=== PATIENT | male | born 1985 | race Caucasian/White ===

== ENCOUNTER 2018-04-01 11:30 | Emergency (ER) | payer BC ==
[~2018-04-01 11:30] MED LIST: AMOX-559 PO; ASPI-757 PO; OXYC-865 PO; SULF-198 PO
--- NOTE | 2018-04-01 11:39 | ER Report ---
History and Physical Time Seen By MD: 11:39 HPI/ROS CHIEF COMPLAINT: Cold symptoms HISTORY OF PRESENT ILLNESS: This is a 32-year-old male who presents to the emergency department for cold symptoms. Patient states that over the last 4-5 days he has had sinus pressure, postnasal drip, semi-productive cough, aches and chills. Denies nausea or vomiting. No diarrhea. No chest pain or shortness of breath. No rashes. REVIEW OF SYSTEMS: Respiratory: As above. ENT: As above. Cardiovascular: No chest pain, no palpitations. Gastrointestinal: No vomiting, no abdominal pain. Musculoskeletal: No back pain. Allergies: Coded Allergies: No Known Drug Allergies (Unverified , 04/01/18) Home Meds Active Scripts Amoxicillin/Pot Clav 875-125 Mg Tab (AUGMENTIN 875-125 TABLET) 1 Each Tablet, 1 TAB PO Q12H for 7 Days, #14 TAB 0 Refills Prov:ELIUD SAUNDERS [facility] 04/01/18 Prednisone (PREDNISONE) 20 Mg Tablet, 20 MG PO BID, #10 TAB Prov:ELIUD SAUNDERS [facility] 04/01/18 Albuterol Sulfate 90 Mcg/Act (PROAIR HFA 90 MCG/ACT) 8.5 Gm Hfa.aer.ad, 1-2 PUFF IH 3-4XD, #1 INHALER 0 Refills Prov:ELIDU SAUNDERS [facility] 04/01/18 Reported Medications Bupropion Hcl (BUPROPION XL) 150 Mg Tab.er.24h 04/01/18 Amphet Asp/Amphet/D-Amphet (AMPHETAMINE SALTS 10 MG TAB) 10 Mg Tablet 04/01/18 Aspirin (ASPIRIN) 325 Mg Tablet, 325 MG PO Q4-6H PRN for PAIN, TAB 01/19/16 Discontinued Scripts Oxycodone Hcl/Acetaminophen (PERCOCET 5-325 MG TABLET) 1 Each Tablet, 1 EACH PO Q6H PRN for PAIN, #12 TAB 0 Refills Prov:ODELL STEWART MD 11/03/16 Sulfamethoxazole/Trimet 800-160 Mg Tab (BACTRIM DS TABLET) 1 Each Tablet, 2 TAB PO Q12H, #12 MG 0 Refills TAKE ONE TABLET BY MOUTH EVERY TWELVE HOURS Prov:ODELL STEWART MD 11/03/16 Amoxicillin/Pot Clav 875-125 Mg Tab (AUGMENTIN 875-125 TABLET) 1 Each Tablet, 1 TAB PO Q12H, #20 TAB 0 Refills Prov:DEMIAN PEREZ MD 01/19/16 Past Medical/Surgical History Patient has a history of right and left hand fractures, ADHD. Reviewed Nurses Notes: Yes Hx Substance Use Disorder: No Hx Alcohol Use: Yes Constitutional Vital Sign - Last 24 Hours 04/01/18 04/01/18 04/01/18 04/01/18 11:34 11:35 12:00 12:01 Temp 98.2 Pulse 118 101 Resp 16 B/P (MAP) 139/105 (116) 139/105 117/101 (106) Pulse Ox 99 95 93 O2 Delivery Room Air Room Air 04/01/18 04/01/18 04/01/18 04/01/18 12:01 12:06 12:06 12:30 Pulse 106 123 109 Resp 18 18 B/P (MAP) 140/99 (113) Pulse Ox 96 95 O2 Delivery Room Air 04/01/18 04/01/18 13:00 13:27 Pulse 111 B/P (MAP) 140/123 (129) 131/101 (111) Pulse Ox 93 Physical Exam General Appearance: The patient is alert, has no immediate need for airway protection and no current signs of toxicity. Eyes: Pupils equal and round no injection. ENT: right frontal and maxillary sinus pain with palpation. Respiratory: Chest is non tender, lungs are clear to auscultation. Cardiac: regular rate and rhythm. Gastrointestinal: Abdomen is soft and non tender, no masses, bowel sounds normal. Musculoskeletal: Neck: Neck is supple and non tender. Extremities have full range of motion and are non tender. Skin: No rashes or lesions. DIFFERENTIAL DIAGNOSIS: After history and physical exam differential diagnosis was considered for viral syndrome, influenza, bronchitis, pneumonia and sinusitis. Medical Decision Making Data Points Laboratory Hematology Test 04/01/18 11:56 Influenza Virus Type A (PCR) Negative (NEGATIVE) Influenza Virus Type B (PCR) Negative (NEGATIVE) Chemistry Test 04/01/18 11:56 Influenza Virus Type A (PCR) Negative (NEGATIVE) Influenza Virus Type B (PCR) Negative (NEGATIVE) EKG/Imaging Imaging Location: [facility] [place] Patient: Bishop Mendoza : 1985 Visit/Account:[id number] Date of : 04/01/2018 2 VIEWS CHEST INDICATION: Cough. COMPARISON: None available FINDINGS: Cardiomediastinal silhouette and pulmonary vessels within normal limits. There is no focal infiltrate or lobar consolidation. There is no pneumothorax or pleural effusion. No nodule. Upper abdomen is unremarkable. No acute bony abnormality. IMPRESSION: 1. No acute cardiopulmonary process. Report Dictated By: Francesco Reeder at 04/01/2018 12:30 PM Report E-Signed By: Francesco Reeder at 04/01/2018 12:32 PM WSN:[id number] ED Course/Re-evaluation ED Course The patient was admitted to room. A history and physical were obtained. Differential diagnoses were considered. Influenza was negative. Negative chest x-ray. Patient was given a DuoNeb which did seem to improve the patient's symptoms. The patient was painful on the sinuses, with mild fevers and aches at home I did start the patient on Augmentin for sinusitis. Patient was also given a prescription for prednisone and an albuterol inhaler. The patient had no other questions or concerns at this time and was discharged home. Decision to Disposition Date: Apr 01, 2018 Decision to Disposition Time: 13:07 Depart Departure Latest Vital Signs Vital Signs Date Time Temp Pulse Resp B/P (MAP) Pulse Ox O2 Delivery O2 Flow Rate FiO2 04/01/18 13:27 131/101 (111) 04/01/18 13:00 111 93 04/01/18 12:06 18 04/01/18 12:06 Room Air 04/01/18 11:35 98.2 Impression: Primary Impression: Sinusitis Condition: Improved Disposition: HOME OR SELF-CARE New Scripts Amoxicillin/Pot Clav 875-125 Mg Tab (AUGMENTIN 875-125 TABLET) 1 Each Tablet 1 TAB PO Q12H for 7 Days, #14 TAB 0 Refills Prov: ELIUD SAUNDERS [employer] 04/01/18 Prednisone (PREDNISONE) 20 Mg Tablet 20 MG PO BID, #10 TAB Prov: ELIUD SAUNDERS [employer] [facility] 04/01/18 Albuterol Sulfate 90 Mcg/Act (PROAIR HFA 90 MCG/ACT) 8.5 Gm Hfa.aer.ad 1-2 PUFF IH 3-4XD, #1 INHALER 0 Refills Prov: ELIUD SAUNDERS 04/01/18 Patient Instructions: Acute Cough (ED), Sinusitis (ED) Additional Instructions: Negative for influenza. I will treat your sinus infection with Augmentin, take as prescribed. Use the inhaler as needed. Take the prednisone as prescribed. Drink plenty of water. Get plenty of rest. Return to the ED for any other concerns or worsening symptoms. Problem Qualifiers Primary Impression: Sinusitis Sinusitis location: maxillary Chronicity: acute Recurrence: not specified as recurrent Qualified Codes: J01.00 - Acute maxillary sinusitis, unspecified ELIUD SAUNDERS Apr 01, 2018 11:39
[2018-04-01] MEDS ORDERED: ALBUTEROL/IPRATROPIUM 3 ML NEB NEB ONE (11:55)
--- NOTE | 2018-04-01 12:40 | RADIOLOGY IMAGING REPORT ---
FACILITY: [facility] [place] PATIENT NAME: Bishop Mendoza : 1985 MR: [id number] V: [id number] EXAM DATE: ORDERING PHYSICIAN: ELIUD SAUNDERS TECHNOLOGIST: Location: Patient: Bishop Mendoza : 1985 Visit/Account:[id number] Date of Sevice: 04/01/2018 2 VIEWS CHEST INDICATION: Cough. COMPARISON: None available FINDINGS: Cardiomediastinal silhouette and pulmonary vessels within normal limits. There is no focal infiltrate or lobar consolidation. There is no pneumothorax or pleural effusion. No nodule. Upper abdomen is unremarkable. No acute bony abnormality. IMPRESSION: 1. No acute cardiopulmonary process. Report Dictated By: Francesco Reeder at 04/01/2018 12:30 PM Report E-Signed By: Francesco Reeder at 04/01/2018 12:32 PM WSN:[id number]
[2018-04-01] MEDS ORDERED: ALBU8.5H IH (13:09)
[2018-04-01] MEDS ORDERED: PRED20TA6 PO (13:09)
[2018-04-01] MEDS ORDERED: AMOX-559 PO (13:09)
[2018-04-01 13:27] VITALS: BP 131/101
[2018-04-01] MEDS ORDERED: DEXT10TA24 (13:30)
[2018-04-01] MEDS ORDERED: BUPR-124 (13:30)
== END 2018-04-01 13:35 | disposition home or self-care (01) ==
LOC: ER 11:45
DX: J01.00 Acute maxillary sinusitis, unspecified (principal)
CPT/HCPCS: 71046; 87502; 94640; 99283; J7620

== ENCOUNTER 2018-06-25 10:47 | Emergency (ER) | payer BC ==
[~2018-06-25 10:47] MED LIST changes: +ALBU8.5H IH; +BUPR-124; +DEXT10TA24; +PRED20TA6 PO
[2018-06-25 10:52] VITALS: BP 117/51
--- NOTE | 2018-06-25 10:52 | ER Report ---
History and Physical Time Seen By MD: 10:52 HPI/ROS CHIEF COMPLAINT: Right ear pressure HISTORY OF PRESENT ILLNESS: This is a 32-year-old male presents to the emergency department for right ear pressure. Patient states that over the last several days he's had increased right ear pressure. He also states that he has intermittent right ear pressure but typically clears however this time it has not. It is causing increased pain into the right ear. He denies fevers, no chest pain, no rashes. No shortness of breath. REVIEW OF SYSTEMS: ENT: As above. Respiratory: No cough, no dyspnea. Cardiovascular: No chest pain, no palpitations. Gastrointestinal: No vomiting, no abdominal pain. Musculoskeletal: No back pain. Allergies: Coded Allergies: No Known Drug Allergies (Unverified , 06/25/18) Home Meds Discontinued Reported Medications Bupropion Hcl (BUPROPION XL) 150 Mg Tab.er.24h 04/01/18 Amphet Asp/Amphet/D-Amphet (AMPHETAMINE SALTS 10 MG TAB) 10 Mg Tablet 04/01/18 Aspirin (ASPIRIN) 325 Mg Tablet, 325 MG PO Q4-6H PRN for PAIN, TAB 01/19/16 Discontinued Scripts Amoxicillin/Pot Clav 875-125 Mg Tab (AUGMENTIN 875-125 TABLET) 1 Each Tablet, 1 TAB PO Q12H for 7 Days, #14 TAB 0 Refills Prov:ELIUD SAUNDERS [facility]- 04/01/18 Prednisone (PREDNISONE) 20 Mg Tablet, 20 MG PO BID, #10 TAB Prov:ELIUD SAUNDERS [facility] 04/01/18 Albuterol Sulfate 90 Mcg/Act (PROAIR HFA 90 MCG/ACT) 8.5 Gm Hfa.aer.ad, 1-2 PUFF IH 3-4XD, #1 INHALER 0 Refills Prov:ELIUD SAUNDERS [facility]- 04/01/18 Past Medical/Surgical History Patient has a past medical and surgical history of right hand fracture and left hand fracture, ADHD. Reviewed Nurses Notes: Yes Hx Substance Use Disorder: No Hx Alcohol Use: Yes Constitutional Vital Sign - Last 24 Hours 06/25/18 10:52 Temp 97.9 Pulse 112 Resp 18 B/P (MAP) 117/51 Pulse Ox 96 O2 Delivery Room Air Physical Exam General Appearance: The patient is alert, has no immediate need for airway p rotection and no current signs of toxicity. Eyes: Pupils equal and round no injection. Ears: Right TM pearly ferguson mildly bulging, No otitis media or serious otitis, clear effusion, no surrounding erythema. Left TM, pearly ferguson, landmarks noted, no effusion, no bulging. Respiratory: Chest is non tender, lungs are clear to auscultation. Cardiac: regular rate and rhythm. Gastrointestinal: Abdomen is soft and non tender, no masses, bowel sounds normal. Musculoskeletal: Neck: Neck is supple and non tender. Extremities have full range of motion and are non tender. Skin: No rashes or lesions. DIFFERENTIAL DIAGNOSIS: After history and physical exam differential diagnosis was considered for otitis media, effusion, stationed dysfunction, seasonal allergies, dental abscess. Medical Decision Making ED Course/Re-evaluation ED Course Patient was admitted to a room. History and physical obtained. Differential diagnoses were considered. After exam if the patient did determine that he has an effusion to the right ear, no injection or signs of infection. I did review this with the patient. He was issued Flonase, and shown how to use it properly. Also encouraged to take Claritin or Zyrtec for the next 7 days. Patient to rest understanding and was discharged. I also encouraged patient to follow up with Dr. Myrick should his symptoms persist and develop a pattern. Decision to Disposition Date: Jun 25, 2018 Decision to Disposition Time: 11:23 Depart Departure Latest Vital Signs Vital Signs Date Time Temp Pulse Resp B/P (MAP) Pulse Ox O2 Delivery O2 Flow Rate FiO2 06/25/18 10:52 97.9 112 18 117/51 96 Room Air Impression: Primary Impression: Pressure sensation in right ear Condition: Improved Disposition: HOME OR SELF-CARE Referrals: TRACY MYRICK JR, MD Patient Instructions: Eustachian Tube Dysfunction (GEN) Additional Instructions: Please use the Flonase, 2 sprays in each nostril twice a day for the next 7 days. You can also take Generic version of Claritin or Zyrtec for one week, this will likely help with some of your symptoms. You can take Ibuprofen or Tylenol as needed for pain. Be sure to drink plenty of water. Get plenty of rest. If no improvement or if this continues to be a recurrent problem, please follow up with Dr. Myrick, ENT. Return to the ED for any other concerns or worsening symptoms. ELIUD SAUNDERS [employer] Jun 25, 2018 10:52
[2018-06-25] MEDS ORDERED: FLUTICASONE PROP 0.05% 16 GM ONE (11:15)
== END 2018-06-25 11:25 | disposition home or self-care (01) ==
LOC: ER 11:03
DX: H93.8X1 Other specified disorders of right ear (principal)
CPT/HCPCS: 99282